=== PATIENT | male | born 1980 | race Caucasian/White ===

== ENCOUNTER 2022-04-29 21:44 | Outpatient (CLI) | payer SELFPAY | END 2022-04-29 21:45 | disposition home or self-care (01) | LOC: AMB 05-03 14:43 | PROVIDERS: Visit Provider Family Medicine | DX: M79.672 Pain in left foot (principal); M79.671 Pain in right foot | CPT/HCPCS: A0425; A0429 ==

== ENCOUNTER 2022-04-29 22:10 | Emergency (ER) | payer SELFPAY ==
[2022-04-29 23:51] VITALS: BP 128/77; PULSE 78; RESP 16; TEMP 36.4; O2SAT 100; BMI 29.0
--- NOTE | 2022-04-30 02:51 | ED.LOWEXIN ---
HPI - Extremity Injury (Lower) General Chief Complaint: Unspecified Complaint, Adult Stated Complaint: FOOT PAIN Time Seen by Provider: 04/30/22 01:21 History of Present Illness HPI Narrative: 41-year-old man presenting to the emergency department initial triage complaints of injuries sustained from spider bites to his feet. I awakened him from sleep clearly very tired having trouble staying awake during this interview. is originally from [place] and says in the area to attend online school. Primary care provider /prescriber [facility] from [place]. He notes history of TBI which he thinks is partly the reason that he has foot neuropathy. He normally takes 800 mg of gabapentin 4 times daily. He has been out of this for the last 2 days. He notes that he denies having had a specific injury to them during this interview including frostbite when queried. That is his primary complaint of pain. Asking where he is sleeping and he says he has been does not have any particular place to stay right now. 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 Medications also include clonazepam which he takes daily for severe anxiety and Adderall and Suboxone. he would like refills of all medications. I discussed how to get some of these would need to be establishing primary care. He is interested in assistance in establishing care provider. Then he asks if it is okay if he just rests here for a time. Footwear is Crocs. Related Data Home Medications Medication Instructions Recorded Confirmed Suboxone 04/29/22 Viagra 04/29/22 clonazepam 1 mg tablet 1 mg PO TID 04/29/22 04/29/22 dextroamphetamine-amphetamine 30 30 mg PO BID 04/29/22 04/29/22 mg tablet (Adderall) gabapentin 04/29/22 Previous Rx's Medication Instructions Recorded gabapentin 800 mg tablet 800 mg PO QID #56 tabs 04/30/22 Allergies Allergy/AdvReac Type Severity Reaction Status Date / Time No Known Drug Allergies Allergy Verified 04/29/22 23:56 Review of Systems Status of ROS: Reports: 6 or more systems reviewed and unremarkable except as noted in History and below Narrative: difficult due to fatigue PFSH PFSH Social History Smoking Status: Former smoker How often do you have a drink containing alcohol: never AUDIT-C Alcohol total score: 0 Non-prescribed substance use: denies use Exam Narrative: Exam Narrative: Here with a Dr. Hogue, his Crocs, a couple disheveled plastic bags of belongings. Extremely tired. Slight ptosis of his left eye Evidence of scarring on his head. Continues to drift off during interview. Alerts when prompted. Respectful. Cranial nerves 2-12 are intact. The skin is warm and dry. Skin over arms hands ankles seems unusually soft. Mild edema of the lower extremities/ankles and feet. Warm, well perfused. Moving all extremities without difficulty Feet in question do not appear to have any traumatic lesions. Mild callosities but generally quite soft. Cardiovascular is regular rate and rhythm Abdomen is soft and nontender. No masses appreciated. Lungs are clear Const: Vital Signs, click to edit/add: Vital Signs - 24 hr 04/29/22 23:51 04/30/22 08:51 Temperature 97.6 F 98 F Pulse Rate [Left P ulse Oximeter] 78 60 Respiratory Rate 16 18 Blood Pressure [Ri ght Upper Arm] 128/77 99/67 Pulse Oximetry 100 98 Oxygen Delivery Me thod Room Air Room Air Documenting provider has reviewed patient's vital signs: yes Course Course Hospital Course: He is requesting to rest. Would appreciate dosing of his gabapentin. Reevaluation(s) Reevaluation #1: Slept overnight. More alert on re-evaluation. Calm. No evidence of withdrawal. Vital Signs Vital signs: Initial Vital Signs Temperature 97.6 F 04/29/22 23:51 Temperature Source Temporal Artery Scan 04/29/22 23:51 Pulse Rate 78 04/29/22 23:51 Respiratory Rate 16 04/29/22 23:51 Blood Pressure 128/77 04/29/22 23:51 Blood Pressure Mean 94 04/29/22 23:51 Blood Pressure Position Sitting 04/29/22 23:51 Pulse Oximetry 100 04/29/22 23:51 Oxygen Delivery Method 04/29/22 23:51 Vital Signs Temperature 97.6 F 04/29/22 23:51 Pulse Rate 78 04/29/22 23:51 Respiratory Rate 16 04/29/22 23:51 Blood Pressure 128/77 04/29/22 23:51 Pulse Oximetry 100 04/29/22 23:51 Oxygen Delivery Method 04/29/22 23:51 Temperature 98 F 04/30/22 08:51 Pulse Rate 60 04/30/22 08:51 Respiratory Rate 18 04/30/22 08:51 Blood Pressure 99/67 04/30/22 08:51 Pulse Oximetry 98 04/30/22 08:51 Oxygen Delivery Method 04/30/22 08:51 MDM - Extremity Injury (Lower) MDM Narrative Medical decision making narrative: I do not see need for further workup at this time. This may well change since rests and divulges more information over time in the ER. During my interview with Mr. Saldana, there was no paranoia or delusional thought. Can certainly at least refill gabapentin. One dose is given here in the emergency department. I suspect the most difficult is going to be social matters including placement. I asked him a number of times given what he had initially told nursing as to whether not he has family here in town, he denies that. I would suspect more significant mental health background than volunteered. Medical Records Medical records narrative: none available to me Lab Data Attestation: I reviewed the patient's lab results. Labs: Lab Results 04/30/22 Range/Units 08:24 Urine Opiates Screen Negative (Negative) Ur Oxycodone Screen Negative (Negative) Urine Methadone Screen Negative (Negative) Ur Propoxyphene Screen Negative (Negative) Ur Barbiturates Screen Negative (Negative) U Tricyclic Antidepress Negative (Negative) Ur Phencyclidine Scrn Negative (Negative) Ur Amphetamines Screen POSITIVE A* (Negative) U Methamphetamines Scrn Negative (Negative) U Benzodiazepines Scrn POSITIVE A* (Negative) Urine Cocaine Screen Negative (Negative) U Marijuana (THC) Screen POSITIVE A* (Negative) Ur Drug Screen Comment See Note Discharge Plan Discharge Clinical Impression: Social discord, Neuropathy Patient Disposition: Home, Self-Care Condition: Improved Additional Instructions: See information on [facility]. You can establish cares here. Prescriptions: New gabapentin 800 mg tablet 800 mg PO QID Qty: 56 0RF No Action clonazepam 1 mg tablet 1 mg PO TID Suboxone dextroamphetamine-amphetamine [Adderall] 30 mg tablet 30 mg PO BID Rx Instructions: administer doses at least 4-6 hours apart Viagra gabapentin Follow Up/Referrals: Provider,Not a Local [Primary Care Provider] - Stand Alone Forms: [employer] Info Instructions
[2022-04-30 08:51] VITALS: BP 99/67; PULSE 60; RESP 18; TEMP 36.6; O2SAT 98
[2022-04-30] MEDS: GABAPENTIN 600 MG TABLET PO (09:00)
[2022-04-30] MEDS: GABAPENTIN 100 MG CAPSULE 200 MG PO (09:10)
[2022-04-30 09:58] LABS: Barbiturate Screen Urine Negative (Negative); Cocaine Screen Urine Negative (Negative); Methadone Screen Urine Negative (Negative); Methamphetamines Screen Urine Negative (Negative); Opiate Screen Urine Negative (Negative); Oxycodone Screen Urine Negative (Negative); Phencyclidine Screen Urine Negative (Negative); Tricyclic Antidepressant Urine Negative (Negative)
[2022-04-30 10:01] LABS: Amphetamine Screen Urine POSITIVE (Negative); Benzodiazepines Screen Urine POSITIVE (Negative); Cannabinoid Screen Urine POSITIVE (Negative)
--- NOTE | 2022-04-30 10:01 | PC.SOCIAL ---
Met with pt to discuss resources. Provided pt with written information on the [facility] in [place] and [facility]. Informed pt that there are no homeless shelters in [facility] and only in the [facility]. Discussed with pt information on relatives in the area. Pt. stated that he can go to his mother's home. Pt provided his mother's address which is [address] in [place]. Informed pt that the Social Work Department can assist with a taxi to his mother's home or to the [facility]. Informed pt that he is not able to make multiple stops and can only go to one location. Pt stated he would like to take the taxi to his mother's home. Offered to call pt's mother to see if she was home and pt declined stating that there is usually always someone at the home. Pt disclosed that he is trying to break free from family and be more independent. Informed Pt that [facility] in [place] can be a great resource for him. Pt will go to the [facility] later today. Provided information to nursing staff in Emergency Department and informed that we could assist with a taxi to mother's home.
--- NOTE | 2022-04-30 10:26 | ED.NURSE ---
wanted to wait outside for taxi. has all information and will proceed to momkady' house at [place]. [facility] was given. will get gabapentin at [facility] with voucher.
== END 2022-04-30 10:30 | disposition home or self-care (01) ==
PROVIDERS: Emergency Provider Family Medicine
DX: G62.9 Polyneuropathy, unspecified (principal); Z73.5 Social role conflict, not elsewhere classified
CPT/HCPCS: 80306; 99283; 99284; A9270

== ENCOUNTER 2023-05-29 09:40 | Emergency (ER) | payer MEDICAID, SELFPAY ==
[2023-05-29 09:51] VITALS: BP 156/82; PULSE 86; RESP 18; TEMP 36.6; O2SAT 98
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
== END 2023-05-29 11:30 | disposition home or self-care (01) ==
LOC: ED 11:14
PROVIDERS: Emergency Provider Family Medicine
DX: Z76.0 Encounter for issue of repeat prescription (principal)
CPT/HCPCS: 99282; 99283

== ENCOUNTER 2024-07-08 09:09 | Emergency (ER) | payer MEDICAID, SELFPAY ==
[2024-07-08 09:14] VITALS: BP 165/110; PULSE 98; RESP 16; TEMP 36.7; O2SAT 95; BMI 35.5
--- NOTE | 2024-07-08 09:36 | ED.GENADULT ---
HPI - General Adult General Chief complaint: Unspecified Complaint, Adult Stated complaint: Anxiety, out of meds Time Seen by Provider: 07/08/24 09:20 History of Present Illness HPI narrative: 44-year-old male comes in stating that he is run out of a couple of his medications and is seeking a refill. He is present here with his mother and both of them recently moved from [place] into this area. He has not yet established care with a primary physician. His mother explains that they thought they had an appointment for June 28, about a week ago and went to the appointment and apparently there was no such appointment made. He states that he last took his clonazepam and gabapentin yesterday. He is feeling anxious. He is also on Suboxone and states that he has been on Adderall also. He reports a history of traumatic brain injury. He does not appear to be in withdrawal. He does report a seizure history and states that he has been on Dilantin in the past. Related Data Home Medications ?Medication ?Instructions ?Recorded ?Confirmed clonazepam 1 mg tablet 1 mg PO TID 04/29/22 07/08/24 dextroamphetamine-amphetamine 30 30 mg PO BID 04/29/22 07/08/24 mg tablet (Adderall) buprenorphine 8 mg-naloxone 2 mg 1 film sublingual 3XD 07/08/24 07/08/24 sublingual film Previous Rx's ?Medication ?Instructions ?Recorded gabapentin 800 mg tablet 800 mg PO QID #56 tabs 04/30/22 gabapentin 800 mg tablet 800 mg PO QID #30 tabs 07/08/24 Allergies Allergy/AdvReac Type Severity Reaction Status Date / Time spider venom Allergy Unknown Verified 07/08/24 09:19 Review of Systems Status of ROS: Reports: 10 or more systems reviewed and unremarkable except as noted in History and below Narrative: Constitutional: No fevers, no weight gain or loss. Eyes: No discharge. No vision changes. HENT: No congestion, no sore throat, no ear pain. Cardiovascular: No chest pain, no palpitations. Respiratory: No shortness of breath, no wheezes, no cough. Gastrointestinal: No abdominal pain, no vomiting, no diarrhea. Genitourinary: No dysuria, no hematuria. Musculoskeletal: Normal range of motion. Skin: No rashes, no pruritis. Neurological: No dizziness, weakness, sensory change, speech change. Endo/Heme/Allergies: No bruising or bleeding. No polydipsia. Pysch: no suicidality, no insomnia. He reports anxiety symptoms. All other systems reviewed and are negative. [facility] Social History Smoking Status: Former smoker How often do you have a drink containing alcohol: never AUDIT-C Alcohol total score: 0 Non-prescribed substance use: former substance user Exam Narrative: Exam Narrative: Constitutional: Well-developed, well-nourished, no acute distress. HEENT: Normocephalic, atraumatic. Neck: Normal range of motion. Nontender. Supple. Heart: Intact distal pulses. Lungs: No chest discomfort. No wheezes, rhonchi, or rales. Abdomen: Nontender. Back: Normal range of motion. Extremities: Normal range of motion. No injury. Skin: Intact. No rash. Warm. No erythema or pallor. Neurologic: No altered sensation. No weakness. Alert and oriented. Psychiatric: No suicidality. No anxiety or depression. No insomnia. Nursing notes and vitals signs are reviewed. Const: Vital Signs, click to edit/add: Vital Signs - 24 hr 07/08/24 09:14 Temperature 98.1 F Pulse Rate [Pulse Oximeter] 98 Respiratory Rate 16 Blood Pressure [Ri ght Upper Arm] 165/110 H Pulse Oximetry 95 Oxygen Delivery Me thod Room Air Course Vital Signs Vital signs: Initial Vital Signs Temperature 98.1 F 07/08/24 09:14 Temperature Source Temporal Artery Scan 07/08/24 09:14 Pulse Rate 98 07/08/24 09:14 Respiratory Rate 16 07/08/24 09:14 Blood Pressure 165/110 H 07/08/24 09:14 Blood Pressure Mean 128 H 07/08/24 09:14 Blood Pressure Position Sitting 07/08/24 09:14 Pulse Oximetry 95 07/08/24 09:14 Oxygen Delivery Method Room Air 07/08/24 09:14 Vital Signs Temperature 98.1 F 07/08/24 09:14 Pulse Rate 98 07/08/24 09:14 Respiratory Rate 16 07/08/24 09:14 Blood Pressure 165/110 H 07/08/24 09:14 Pulse Oximetry 95 07/08/24 09:14 Oxygen Delivery Method Room Air 07/08/24 09:14 Temperature 98.1 F 07/08/24 09:14 Pulse Rate 98 07/08/24 09:14 Respiratory Rate 16 07/08/24 09:14 Blood Pressure 165/110 H 07/08/24 09:14 Pulse Oximetry 95 07/08/24 09:14 Oxygen Delivery Method Room Air 07/08/24 09:14 Medical Decision Making MDM Narrative Medical decision making narrative: This patient is on a number of scheduled drugs chronically. He seems believable in that he has not yet established care here after recently moving from [place]. I stressed the importance of establishing this care and stated that we will not manage these medicines from the emergency department. He is at risk for withdrawal with both clonazepam and gabapentin. I did provide prescriptions for each of these to help him for about a week. I included phone number for establishing a doctor appointment in the discharge information. Discharge Plan Discharge Clinical Impression: Anxiety Additional Instructions: follow-up with a primary physician for ongoing management of medications. Call [phone] for appointment. Prescriptions: New gabapentin 800 mg tablet 800 mg PO QID Qty: 30 2RF No Action buprenorphine-naloxone 8-2 mg film 1 film sublingual 3XD clonazepam 1 mg tablet 1 mg PO TID dextroamphetamine-amphetamine [Adderall] 30 mg tablet 30 mg PO BID Rx Instructions: administer doses at least 4-6 hours apart gabapentin 800 mg tablet 800 mg PO QID Qty: 56 0RF Follow Up/Referrals: Provider,Not a Local [Primary Care Provider] - Stand Alone Forms: [employer] Info Instructions
--- OUTSIDE RECORDS SUMMARY | 2024-07-08 10:07 | XMS_ITS | Encounter Summary ---
Author Organization [facility] Address [address] [place] [address] Care Team Providers Care Cleaning Specialist Name Role Phone Bhavana La MD Primary Care Provider [phone] Encounter Details Date Type Department Care Team (Latest Contact Info) Description 03/10/2023 Transcribe Orders [facility] [place] [address] [place] [address] Bhavana La MD [address] [place] [address] Pain in right hip (Primary Dx) Social History Tobacco Use Types Packs/Day Years Used Date Smoking Tobacco: Some Days Cigarettes 0.3 4 Smokeless Tobacco: Never Comments:Education given Alcohol Use Standard Drinks/Week Comments Yes 0 (1 standard drink = 0.6 oz pure alcohol) Pt states he doesnt use anymore PHQ-2 Answer Date Recorded PHQ-2 Score 0 11/18/2018 Sex and Gender Information Value Date Recorded Sex Assigned at Not on file Gender Identity Not on file Sexual Orientation Not on file documented as of this encounter Plan of Treatment Upcoming Encounters Date Type Department Care Team (Late st Contact Info) Description 12/12/2024 11:20 AM MDT Office Visit [facility] [address] [place] [address] Devin Rollins MD [address] [place] [address] documented as of this encounter Visit Diagnoses Diagnosis Pain in right hip- Primary documented in this encounter Care Teams Cleaning Specialist Relationship Specialty Start Date End Date Bhavana La MD [address] [place] [id number] PCP - General Family Medicine 06/21/23 documented as of this encounter
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
--- OUTSIDE RECORDS SUMMARY | 2024-07-08 10:07 | XMS_ITS | Encounter Summary ---
Author Organization [employer] Address [address] [place] [address] Care Team Providers Care Lean Leader Name Role Phone Bhavana La MD Primary Care Provider +1 [phone] Encounter Details Date Type Department Care Team (Late st Contact Info) Description 04/02/2020 [facility] Patient Access [address] [place] [address] Pcp, Unknown Social History Tobacco Use Types Packs/Day Years Used Date Smoking Tobacco: Some Days Cigarettes 0.3 4 Smokeless Tobacco: Never Comments:Education given Alcohol Use Standard Drinks/Week Comments No 0 (1 standard drink = 0.6 oz pur e alcohol) PHQ-2 Answer Date Recorded PHQ-2 Score 0 11/18/2018 Sex and Gender Information Value Date Recorded Sex Assigned at Not on file Gender Identity Not on file Sexual Orientation Not on file COVID-19 Exposure Response Date Recorded In the last month, have you been in contact with someone who was confirmed or suspected to have Coronavirus / COVID-19? No / Unsure 03/22/2020 3:22 PM MDT documented as of this encounter Plan of Treatment Upcoming Encounters Date Type Department Care Team (Late Contact Info) Description 12/12/2024 11:20 AM MDT Office Visit [facility] [address] [place] [address] Devin Rollins MD [address] [facility] [address] [place] [address] documented as of this encounter Visit Diagnoses Not on filedocumented in this encounter Additional Health Concerns Infection Onset Date Last Indicated Resolved Time COVID-19 Pending 05/30/2021 05/30/2021 05/31/2021 12:51 AM MDT COVID-19 Pending 08/08/2021 08/08/2021 08/08/2021 12:19 PM MST COVID-19 Pending 08/17/2022 08/17/2022 09/07/2022 7:42 PM MST documented as of this encounter Care Teams Lean Leader Relationship Specialty Start Date End Date Bhavana La MD [address] [place] [address] [place] [address] PCP - General Family Medicine 06/21/23 documented as of this encounter
--- OUTSIDE RECORDS SUMMARY | 2024-07-08 10:07 | XMS_ITS | Encounter Summary ---
Author Organization [employer] Address [address] [place] [address] Care Team Providers Care Tumbling Barrel Painter Name Role Phone Bhavana La MD Primary Care Provider + -[phone] Reason for Referral * EEG (Routine) - Closed Specialty Diagnoses / Procedures Referred By Contdavonte t Referred To Contact Neurology Diagnoses Other seizures ([facility]) Procedures EEG Routine; Standard duration Bhavana La MD [address] [place] [address] [place] [address] [facility] Eeg Neuro [address] [facility] [place] [address] Referral ID Status Reason Start Date Expiration Date Visits Re quested Visits Authorized [id number] Closed 04/13/2023 04/12/2024 1 1 Encounter Details Date Type Department Care Team (Latest Contact Info) Description 04/13/2023 Transcribe Orders [facility] [address] [place] [address] Bhavana La MD [address] [place] [address] [place] [address] Other seizures (CMS/HCC) (Primary Dx); Right hip pain Social History Tobacco Use Types Packs/Day Years [...] Description 12/12/2024 11:20 AM MDT Office Visit [facility] [address] [place] [address] Devin Rollins MD [address] [place] [address] Scheduled Orders Name Type Priority Associated Diagnoses Orde r Schedule EEG Routine; Standard duration Neurology Routine Other seizures (CMS/HCC) Expected: 04/13/2023, Expires: 04/13/2024 documented as of this encounter Visit Diagnoses Diagnosis Other seizures (CMS/HCC)- Primary Right hip pain Pain in joint, pelvic region and thigh documented in this encounter Care Teams Tumbling Barrel Painter Relationship Specialty Start Date End Date Bhavana La MD [address] [place] [address] PCP - General Family Medicine 06/21/23 documented as of this encounter
--- OUTSIDE RECORDS SUMMARY | 2024-07-08 10:07 | XMS_ITS | Encounter Summary ---
Author Organization [employer] Address [address] [place] [address] Care Team Providers Care Turkey Farmer Name Role Phone Bhavana La MD Primary Care Provider +1 [phone] Encounter Details Date Type Department Care Team (Latest Contact Info) Description 04/19/[address] [facility] [address] [place] [address] Bhavana La MD [address] [place] [address] [place] [address] Other seizures (CMS/HCC) (Primary Dx) Social History Tobacco Use Types [...] Description 12/12/2024 11:20 AM MDT Office Visit [facility] [address] [facility] [address] [place] [address] Devin Rollins MD [address] [place] [address] documented as of this encounter Visit Diagnoses Diagnosis Other seizures (CMS/HCC)- Primary documented in this encounter Care Teams Turkey Farmer Relationship Specialty Start Date End Date Bhavana La MD [address] [place] [address] [place] [address] PCP - General Family Medicine 06/21/23 documented as of this encounter
--- OUTSIDE RECORDS SUMMARY | 2024-07-08 10:07 | XMS_ITS | Encounter Summary ---
Author Organization [employer] Address [address] [place] [address] Care Team Providers Care Teaching Pastor Name Role Phone Bhavana La MD Primary Care Provider +1 [phone] Encounter Details Date Type Department Care Team (Latest Contact Info) Description 01/19/2020 [facility] Patient Access [address] [place], [place] [id number] Bhavana La MD [address] [place] [address] Pain in right hip (Primary Dx) Social [...] Description 12/12/2024 11:20 AM MDT Office Visit [facility] [address] [place] [address] Devin Rollins MD [facility] [address] [place] [address] documented as of this encounter Visit Diagnoses Diagnosis Pain in right hip- Primary documented in this encounter Additional Health Concerns Infection Onset Date Last Indicated Resolved Time COVID-19 Pending 05/30/2021 05/30/2021 05/31/2021 12:51 AM MDT COVID-19 Pending 08/08/2021 08/08/2021 08/08/2021 12:19 PM MST COVID-19 Pending 08/17/2022 08/17/2022 09/07/2022 7:42 PM MST documented as of this encounter Care Teams Teaching Pastor Relationship Specialty Start Date End Date Bhavana La MD [address] [facility] [address] [place] [address] PCP - General Family Medicine 06/21/23 documented as of this encounter
--- OUTSIDE RECORDS SUMMARY | 2024-07-08 10:07 | XMS_ITS | Encounter Summary ---
Author Organization [employer] Address [address] [place] [address] Care Team Providers Care Web Assistant Name Role Phone Bhavana La MD Primary Care Provider +1 [phone] Reason for Referral * Physical Therapy (Routine) - Closed Specialty Diagnoses / Procedures Referred By Contact Referred To Contact Physical Therapy / Rehabilitation Diagnoses Back pain Juli Wells NP [address] [email or web address] [address] [facility] [address] [email or web address] [address] Referral ID Status Reason Start Date Expiration Date V isits Requested Visits Authorized [id number] Closed Evaluation and Treatment 01/31/2019 03/28/2019 8 8 Encounter Details Date Type Department Care Team (Latest Contact Info) Description 02/27/2019 Transcribe Orders [facility] [place] [address] [place] [address] Juli Wells NP [address] [email or web address] [address] Back pain (Primary Dx) Social History Tobacco Use Types Packs/Day Years Used Date Smoking Tobacco: Some Days Cigarettes 0.3 4 Smokeless Tobacco: Never Alcohol Use Standard Drinks/Week Comments No 0 [...] Description 12/12/2024 11:20 AM MDT Office Visit [facility] [address] [place] [address] Devin Rollins MD [address] [place] [address] Scheduled Referrals Name Type Priority Associated Diagnoses Order Schedule Ambulatory Referral to Physical Therapy Outpatient Referral Routine Back pain Expected: 02/28/2019, Expires: 03/13/2020 documented as of this encounter Visit Diagnoses Diagnosis Back pain- Primary Unspecified backache documented in this encounter Additional Health Concerns Infection Onset Date Last Indicated Resolved Time COVID-19 Pending 05/30/2021 05/30/2021 05/31/2021 12:51 AM MDT COVID-19 Pending 08/08/2021 08/08/2021 08/08/2021 12:19 PM MST COVID-19 Pending 08/17/2022 08/17/2022 09/07/2022 7:42 PM MST documented as of this encounter Care Teams Web Assistant Relationship Specialty Start Date End Date Bhavana La MD [address] [place] [address] PCP - General Family Medicine 06/21/23 documented as of this encounter
--- OUTSIDE RECORDS SUMMARY | 2024-07-08 10:07 | XMS_ITS | Encounter Summary ---
Author Organization [employer] Address [address] [place] [address] Care Team Providers Care Vision Teacher Name Role Phone Bhavana La MD Primary Care Provider +1 -[phone] Reason for Referral * Physical Therapy (Routine) - Closed Specialty Diagnoses / Procedures Referred By Contact Referred To Contact Physical Therapy / Rehabilitation Diagnoses Hip pain, chronic, right Right leg pain Juli Wells NP [address] [place] [address] [facility] [address] [address] Referral ID Status Reason Start Date Expiration Date V isits Requested Visits Authorized [id number] Closed Evaluation and Treatment 06/06/2020 06/06/2021 6 6 Encounter Details Date Type Department Care Team (Latest Contact Info) Description 06/06/2020 Transcribe Orders [facility] [place] [address] [address] Juli Wells NP [address] [place] [address] Hip pain, chronic, right (Primary Dx); Right leg pain Social History Tobacco Use Types Packs/Day [...] Description 12/12/2024 11:20 AM MDT Office Visit [facility] [address] [place] [phone] Devin Rollins MD [address] [place] [address] Scheduled Referrals Name Type Priority Associated Diagnoses Order Schedule Ambulatory Referral to Physical Therapy Outpatient Referral Routine Hip pain, chronic, right Right leg pain Ordered: 06/06/2020 documented as of this encounter Visit Diagnoses Diagnosis Hip pain, chronic, right- Primary Right leg pain Pain in soft tissues of limb documented in this encounter Additional Health Concerns Infection Onset Date Last Indicated Resolved Time COVID-19 Pending 05/30/2021 05/30/2021 05/31/2021 12:51 AM MDT COVID-19 Pending 08/08/2021 08/08/2021 08/08/2021 12:19 PM MST COVID-19 Pending 08/17/2022 08/17/2022 09/07/2022 7:42 PM MST documented as of this encounter Care Teams Vision Teacher Relationship Specialty Start Date End Date Bhavana La MD [address] [place] [address] PCP - General Family Medicine 06/21/23 documented as of this encounter
--- OUTSIDE RECORDS SUMMARY | 2024-07-08 12:35 | XMS_ITS | Encounter Summary ---
Author Organization [employer] Address [address] [place] [address] Care Team Providers Care Plater Barrel Name Role Phone Bhavana La MD Primary Care Provider +1 -[phone] Encounter Details Date Type Department Care Team (Latest Contact Info) Description 01/19/2020 [facility] Patient Access [address] [place], [place] [phone] Bhavana La MD [address] [place] [address] Pain in right hip (Primary Dx) Social [...] Description 12/12/2024 11:20 AM MDT Office Visit [facility] [address] [place] [address] Devin Rollins MD [facility] [address] [place] [address] documented as of this encounter Visit Diagnoses Diagnosis Pain in right hip- Primary documented in this encounter Additional Health Concerns Infection Onset Date Last Indicated Resolved Time COVID-19 Pending 05/30/2021 05/30/2021 05/31/2021 12:51 AM MDT COVID-19 Pending 08/08/2021 08/08/2021 08/08/2021 12:19 PM MST COVID-19 Pending 08/17/2022 08/17/2022 09/07/2022 7:42 PM MST documented as of this encounter Care Teams Plater Barrel Relationship Specialty Start Date End Date Bhavana La MD [address] [facility] [address] [place] [address] PCP - General Family Medicine 06/21/23 documented as of this encounter
--- OUTSIDE RECORDS SUMMARY | 2024-07-08 12:35 | XMS_ITS | Encounter Summary ---
Author Organization [employer] Address [address] [place] [address] Care Team Providers Care Outreach Counselor Name Role Phone Bhavana La MD Primary Care Provider +1 -[phone] Encounter Details Date Type Department Care Team (Latest Contact Info) Description 03/10/2023 [facility] [place] [address] [place] [...] 11:20 AM MDT Office Visit [facility] [address] [place] [address] Devin Rollins MD [address] [place] [address] documented as of this encounter Visit Diagnoses Diagnosis Pain in right hip- Primary documented in this encounter Care Teams Outreach Counselor Relationship Specialty Start Date End Date Bhavana La MD [address] [place] [address] PCP - General Family Medicine 06/21/23 documented as of this encounter
--- OUTSIDE RECORDS SUMMARY | 2024-07-08 12:35 | XMS_ITS | Referral Summary ---
Author Organization [employer] Address [address] [place] [address] Care Team Providers Care Historic Preservationist Name Role Phone Bhavana La MD Primary Care Provider +1 -[phone] Allergies Active Allergy Reactions Criticality Noted Date [...] 11:20 AM MDT Office Visit [facility] [address] [facility] [address] [place] [address] Devin Rollins MD [address] [facility] [address] [place] [address] Advance Directives * Full Code (Latest Code Status on File) Date Activated Date Inactivated Comments 06/07/2022 6:48 AM 06/07/2022 1:29 PM Care Teams Historic Preservationist Relationship Specialty Start Date End Date Bhavana La MD [address] [facility] [address] [place] [address] PCP - General Family Medicine 06/21/23
--- OUTSIDE RECORDS SUMMARY | 2024-07-08 12:35 | XMS_ITS | Encounter Summary ---
Author Organization [employer] Address [address] [place] [address] Care Team Providers Care Performance Improvement Consultant Name Role Phone Bhavana La MD Primary Care Provider +1 -[phone] Encounter Details Date Type Department Care Team (Latest Contact Info) Description 04/19/2023 Transcribe Orders [facility] [address] [place] [address] Bhavana La MD [address] [place] [address] Other seizures (CMS/HCC) (Primary Dx) Social History [...] Description 12/12/2024 11:20 AM MDT Office Visit [facility] [address] [facility] [address] [place] [address] Devin Rollins MD [address] [place] [address] documented as of this encounter Visit Diagnoses Diagnosis Other seizures (CMS/HCC)- Primary documented in this encounter Care Teams Performance Improvement Consultant Relationship Specialty Start Date End Date Bhavana La MD [address] [place] [address] [place] [address] PCP - General Family Medicine 06/21/23 documented as of this encounter
--- OUTSIDE RECORDS SUMMARY | 2024-07-08 12:35 | XMS_ITS | Encounter Summary ---
Author Organization [employer] Address [address] [place] [address] Care Team Providers Care Amusement Or Recreation Card Checker Name Role Phone Bhavana La MD Primary Care Provider +1 -[phone] Reason for Referral * Physical Therapy (Routine) - Closed Specialty Diagnoses / Procedures Referred By Contact Referred To Contact Physical Therapy / Rehabilitation Diagnoses Back pain Juli Wells NP [address] [place] [address] [facility] [address] [place] [address] Referral ID Status Reason Start Date Expiration Date V isits Requested Visits Authorized [id number] Closed Evaluation and Treatment 01/31/2019 03/28/2019 8 8 Encounter Details Date Type Department Care Team (Latest Contact Info) Description 02/27/2019 [facility] [place] [address] [place] [address] Juli Wells NP [address] [place] [address] Back pain (Primary Dx) Social History [...] Description 12/12/2024 11:20 AM MDT [facility] [address] [place] [address] Devin Rollins MD [address] [place] [address] Scheduled [...] documented as of this encounter Care Teams Amusement Or Recreation Card Checker Relationship Specialty Start Date End Date Bhavana La MD [address] [place] [address] PCP - General Family Medicine 06/21/23 documented as of this encounter
--- OUTSIDE RECORDS SUMMARY | 2024-07-08 12:35 | XMS_ITS | Clinical Summary ---
Author Organization [employer] Address [address] [place] [address] Care Team Providers Care Television Announcer Name Role Phone Bhavana La MD Primary Care Provider +1 -[phone] Allergies Active Allergy Reactions Criticality Noted Date [...] 11:20 AM MDT [facility] [address] [facility] [address] [place] [address] Devin Rollins MD 1010 [facility] [address] [place] [address] Health Maintenance Due Date Last Done [...] 6:48 AM 06/07/2022 1:29 PM Care Teams Television Announcer Relationship Specialty Start Date End Date Bhavana La MD [address] [place] [address] [place] [address] PCP - General Family Medicine 06/21/23
--- OUTSIDE RECORDS SUMMARY | 2024-07-08 12:35 | XMS_ITS | Encounter Summary ---
Author Organization [employer] Address [address] [place] [place] [address] Care Team Providers Care Supervisor Chassis Assembly Name Role Phone Bhavana La MD Primary Care Provider + -[phone] Reason for Referral * EEG (Routine) - Closed Specialty Diagnoses / Procedures Referred By Contdavonte t Referred To Contact Neurology Diagnoses Other seizures ([facility]) Procedures EEG Routine; Standard duration Bhavana La MD [address] [employer] [place] [address] [facility] Eeg Neuro [address] [place] [address] Referral ID Status Reason Start Date Expiration Date Visits Re quested Visits Authorized [id number] Closed 04/13/2023 04/12/2024 1 1 Encounter Details Date Type Department Care Team (Latest Contact Info) Description 04/13/[address] [facility] [address] [place] [address] Bhavana La MD [address] [employer] [address] Other seizures (CMS/HCC) (Primary Dx); Right [...] Description 12/12/2024 11:20 AM MDT Office Visit [facility] Neurology [facility] [address] [place] [address] Devin Rollins MD [address] [place] [address] Scheduled Orders Name Type Priority Associated Diagnoses Orde r Schedule EEG Routine; Standard duration Neurology Routine Other seizures (CMS/HCC) Expected: 04/13/2023, Expires: 04/13/2024 documented as of this encounter Visit Diagnoses Diagnosis Other seizures (CMS/HCC)- Primary Right hip pain Pain in joint, pelvic region and thigh documented in this encounter Care Teams Supervisor Chassis Assembly Relationship Specialty Start Date End Date Bhavana La MD [address] [place] [address] PCP - General Family Medicine 06/21/23 documented as of this encounter
--- OUTSIDE RECORDS SUMMARY | 2024-07-08 12:35 | XMS_ITS | Encounter Summary ---
Author Organization [employer] Address [address] [place] [address] Care Team Providers Care Lead Massage Therapist Name Role Phone Bhavana La MD Primary Care Provider +1 [phone] Reason for Referral * Physical Therapy (Routine) - Closed Specialty Diagnoses / Procedures Referred By Contact Referred To Contact Physical Therapy / Rehabilitation Diagnoses Hip pain, chronic, right Right leg pain Juli Wells NP [address] [place] [address] [facility] [address] [address] Referral ID Status Reason Start Date Expiration Date V isits Requested Visits Authorized [id number] Closed Evaluation and Treatment 06/06/2020 06/06/2021 6 6 Encounter Details Date Type Department Care Team (Latest Contact Info) Description 06/06/2020 Transcribe Orders [facility] [place] [address] [place] [address] Juli Wells NP [address] [place] [address] Hip pain, chronic, right (Primary Dx); Right [...] 11:20 AM MDT Office Visit [facility] [address] [place] [phone] Devin Rollins MD [address] [place] [address] Scheduled Referrals Name Type Priority [...] documented as of this encounter Care Teams Lead Massage Therapist Relationship Specialty Start Date End Date Bhavana La MD [address] [place] [address] PCP - General Family Medicine 06/21/23 documented as of this encounter
--- OUTSIDE RECORDS SUMMARY | 2024-07-08 12:35 | XMS_ITS | Encounter Summary ---
Author Organization [employer] [facility] Address [address] [place] [address] Care Team Providers Care Professor Of Theater Name Role Phone Bhavana La MD Primary Care Provider +1 [phone] Encounter Details Date Type Department Care Team (Late st Contact Info) Description 04/02/2020 [facility] Patient Access [address] [place] [address] Pcp, Unknown Social [...] Description 12/12/2024 11:20 AM MDT Office Visit [facility] [address] [place] [address] Devin Rollins MD [address] [facility] [address] [place] [address] documented as of this encounter Visit Diagnoses Not on filedocumented in this encounter Additional Health Concerns Infection Onset Date Last Indicated Resolved Time COVID-19 Pending 05/30/2021 05/30/2021 05/31/2021 12:51 AM MDT COVID-19 Pending 08/08/2021 08/08/2021 08/08/2021 12:19 PM MST COVID-19 Pending 08/17/2022 08/17/2022 09/07/2022 7:42 PM MST documented as of this encounter Care Teams Professor Of Theater Relationship Specialty Start Date End Date Bhavana La MD [address] [place] [address] PCP - General Family Medicine 06/21/23 documented as of this encounter
== END 2024-07-08 10:06 | disposition home or self-care (01) ==
LOC: ED 10:04
PROVIDERS: Emergency Provider Emergency Medicine Emergency Medical Services
DX: F41.9 Anxiety disorder, unspecified (principal)
CPT/HCPCS: 99283; 99285

== ENCOUNTER 2024-07-17 16:04 | Emergency (ER) | payer MEDICARE, SELFPAY ==
[2024-07-17 16:15] VITALS: BP 138/96; PULSE 92; RESP 18; TEMP 36.4; O2SAT 98; BMI 34.2
--- NOTE | 2024-07-17 18:21 | ED_ITS ---
HPI - General Adult General Chief complaint: Unspecified Complaint, Adult Stated complaint: Anxiety--needs med refill Time Seen by Provider: 07/17/24 18:15 History of Present Illness HPI narrative: This 44-year-old male comes in with his mother because he has run out of clonazepam. He has increased anxiety as results. He typically takes 1 mg clonazepam tablets 3 times a day. He recently moved into this area from [place] and did have an appointment with a primary physician that turned out to be not an appointment that the clinic was expecting. He came in to see me here in this emergency department 9 days ago under these circumstances and I did refill his clonazepam and gabapentin because of the risk for withdrawal symptoms. He has now arrange an appointment with Dr. Childers 8 days from now. He comes in now because he has run out of his clonazepam and is feeling anxious. Related Data Home Medications ?Medication ?Instructions ?Recorded ?Confirmed clonazepam 1 mg tablet 1 mg PO TID 04/29/22 07/08/24 dextroamphetamine-amphetamine 30 30 mg PO BID 04/29/22 07/08/24 mg tablet (Adderall) buprenorphine 8 mg-naloxone 2 mg 1 film sublingual 3XD 07/08/24 07/08/24 sublingual film Previous Rx's ?Medication ?Instructions ?Recorded gabapentin 800 mg tablet 800 mg PO QID #56 tabs 04/30/22 gabapentin 800 mg tablet 800 mg PO QID #30 tabs 07/08/24 clonazepam 1 mg tablet 1 mg PO BID #20 tabs 07/17/24 Allergies Allergy/AdvReac Type Severity Reaction Status Date / Time spider venom Allergy Unknown Verified 07/08/24 09:19 Review of Systems Status of ROS: Reports: 10 or more systems reviewed and unremarkable except as noted in History and below Narrative: Constitutional: No fevers, no weight gain or loss. Eyes: No discharge. No vision changes. HENT: No congestion, no sore throat, no ear pain. Cardiovascular: No chest pain, no palpitations. Respiratory: No shortness of breath, no wheezes, no cough. Gastrointestinal: No abdominal pain, no vomiting, no diarrhea. Genitourinary: No dysuria, no hematuria. Musculoskeletal: Normal range of motion. Skin: No rashes, no pruritis. Neurological: No dizziness, weakness, sensory change, speech change. Endo/Heme/Allergies: No bruising or bleeding. No polydipsia. Pysch: no suicidality, no insomnia. Anxiety symptoms as described above. All other systems reviewed and are negative. [facility] Social History Smoking Status: Former smoker How often do you have a drink containing alcohol: never AUDIT-C Alcohol total score: 0 Non-prescribed substance use: former substance user Exam Narrative: Exam Narrative: Constitutional: Well-developed, well-nourished, no acute distress. HEENT: Normocephalic, atraumatic. Neck: Normal range of motion. Nontender. Supple. Heart: Regular. No murmurs. Normal rate. Intact distal pulses. Lungs: Clear to auscultation. No chest discomfort. No wheezes, rhonchi, or rales. Abdomen: Normal bowel sounds. Nontender. No rebound tenderness. Genitalia: Deferred. Back: No midline tenderness. Normal range of motion. Extremities: Normal range of motion. No injury. Skin: Intact. No rash. Warm. No erythema or pallor. Neurologic: No altered sensation. No weakness. Alert and oriented. Psychiatric: No suicidality. No insomnia. Nursing notes and vitals signs are reviewed. Const: Vital Signs, click to edit/add: Vital Signs - 24 hr 07/17/24 16:15 Temperature 97.6 F Pulse Rate [Pulse Oximeter] 92 Respiratory Rate 18 Blood Pressure [Ri ght Upper Arm] 138/96 H Pulse Oximetry 98 Oxygen Delivery Me thod Room Air Course Vital Signs Vital signs: Initial Vital Signs Temperature 97.6 F 07/17/24 16:15 Temperature Source Temporal Artery Scan 07/17/24 16:15 Pulse Rate 92 07/17/24 16:15 Pulse Rhythm Regular 07/17/24 16:15 Respiratory Rate 18 07/17/24 16:15 Blood Pressure 138/96 H 07/17/24 16:15 Blood Pressure Mean 110 H 07/17/24 16:15 Blood Pressure Position Sitting 07/17/24 16:15 Pulse Oximetry 98 07/17/24 16:15 Oxygen Delivery Method Room Air 07/17/24 16:15 Vital Signs Temperature 97.6 F 07/17/24 16:15 Pulse Rate 92 07/17/24 16:15 Respiratory Rate 18 07/17/24 16:15 Blood Pressure 138/96 H 07/17/24 16:15 Pulse Oximetry 98 07/17/24 16:15 Oxygen Delivery Method Room Air 07/17/24 16:15 Temperature 97.6 F 07/17/24 16:15 Pulse Rate 92 07/17/24 16:15 Respiratory Rate 18 07/17/24 16:15 Blood Pressure 138/96 H 07/17/24 16:15 Pulse Oximetry 98 07/17/24 16:15 Oxygen Delivery Method Room Air 07/17/24 16:15 Medical Decision Making MDM Narrative Medical decision making narrative: This patient is on several psychotropic medications including clonazepam and Adderall. He is also taking gabapentin. He has run out of clonazepam and appears to be taking it as prescribed. He was unable to arrange an appointment for a primary physician to manage medications until next week. He does have an appointment 8 days from now. I did agree to refill clonazepam 1 additional time under these circumstances. Discharge Plan Discharge Clinical Impression: Anxiety Patient Disposition: Home w/ Parent or Adult Condition: Stable Additional Instructions: Take medication as prescribed. Follow-up with primary care appointment as scheduled next week for ongoing medication management. Prescriptions: New clonazepam 1 mg tablet 1 mg PO BID Qty: 20 0RF No Action buprenorphine-naloxone 8-2 mg film 1 film sublingual 3XD gabapentin 800 mg tablet 800 mg PO QID Qty: 30 2RF clonazepam 1 mg tablet 1 mg PO TID dextroamphetamine-amphetamine [Adderall] 30 mg tablet 30 mg PO BID Rx Instructions: administer doses at least 4-6 hours apart gabapentin 800 mg tablet 800 mg PO QID Qty: 56 0RF Follow Up/Referrals: Provider,Not a Local [Primary Care Provider] - Stand Alone Forms: [facility] Info Instructions
--- OUTSIDE RECORDS SUMMARY | 2024-07-17 18:30 | XMS_ITS | Encounter Summary ---
Author Organization [employer] Address [address] [place] [address] Care Team Providers Care Allergy And Immunology Chief Name Role Phone Bhavana La MD Primary Care Provider [phone] [phone] Reason for Referral * Physical Therapy (Routine) - Closed Specialty Diagnoses / Procedures Referred By Contact Referred To Contact Physical Therapy / Rehabilitation Diagnoses Hip pain, chronic, right Right leg pain Juli Wells NP [address] [place] [address] Phone: tel: fax: [facility] [place] [address] [facility] [address] [address] Phone: tel: fax: Referral ID Status Reason Start Date Expiration Date V isits Requested Visits Authorized [id number] Closed Evaluation and Treatment 06/06/2020 06/06/2021 6 6 Encounter Details Date Type Department Care Team (Latest Contact Info) Description 06/06/2020 Transcribe Orders [facility] [place] [address] [facility] [address] [place] [address] Juli Wells, IGOR [address] [place], [place] [id number] Hip pain, chronic, right (Primary Dx); Right [...] Recorded Sex Assigned at Not on file Legal Sex Male 6:29 PM MDT Gender Identity Not on file Sexual Orientation Not on file documented as of this encounter Plan of Treatment Upcoming Encounters Date Type Department Care Team (Late st Contact Info) Description 12/12/2024 11:20 AM MDT Office Visit [facility] Neurology [facility] [address] [place] [address] Devin Rollins MD [address] [place] [address] Scheduled [...] documented as of this encounter Care Teams Allergy And Immunology Chief Relationship Specialty Start Date End Date Bhavana La MD [address] [place] [address] PCP - General Family Medicine 06/21/23 documented as of this encounter
--- OUTSIDE RECORDS SUMMARY | 2024-07-17 18:30 | XMS_ITS | Encounter Summary ---
Author Organization [employer] Address [address] [place] [address] Care Team Providers Care Physiological Chemist Name Role Phone Bhavana La MD Primary Care Provider [phone] [phone] Reason for Referral * EEG (Routine) - Closed Specialty Diagnoses / Procedures Referred By Contac t Referred To Contact Neurology Diagnoses Other seizures ([facility]) Procedures EEG Routine; Standard duration Bhavana La MD [address] [employer] [place] [address] Phone: tel: fax: [facility] EEG [address] [place] [address] Phone: tel: Referral ID Status Reason Start Date Expiration Date Visits Re quested Visits Authorized [id number] Closed 04/13/2023 04/12/2024 1 1 Encounter Details Date Type Department Care Team (Latest Contact Info) Description 04/13/2023 Transcribe Orders [facility] [address] [place] [address] Bhavana La MD [address] [place] [phone] Other seizures (CMS/HCC) (Primary Dx); Right hip [...] Description 12/12/2024 11:20 AM MDT Office Visit [facility] Neurology [facility] [address] [place] [address] Devin Rollins MD [address] [place] [phone] Scheduled Orders Name Type Priority Associated Diagnoses Orde r Schedule EEG Routine; Standard duration Neurology Routine Other seizures (CMS/HCC) Expected: 04/13/2023, Expires: 04/13/2024 documented as of this encounter Visit Diagnoses Diagnosis Other seizures (CMS/HCC)- Primary Right hip pain Pain in joint, pelvic region and thigh documented in this encounter Care Teams Physiological Chemist Relationship Specialty Start Date End Date Bhavana La MD [address] [place] [address] PCP - General Family Medicine 06/21/23 documented as of this encounter
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
--- OUTSIDE RECORDS SUMMARY | 2024-07-17 18:30 | XMS_ITS | Encounter Summary ---
Author Organization [employer] [facility] Address [address] [place] [address] Care Team Providers Care Instrument Installer Name Role Phone Bhavana La MD Primary Care Provider [phone] [phone] Encounter Details Date Type Department Care Team (Late st Contact Info) Description 04/02/[address] [facility] Patient Access [address] [facility] [place] [address] Pcp, Unknown Social History Tobacco Use [...] Description 12/12/2024 11:20 AM MDT Office Visit [facility] [address] [facility] [address] [place] [address] Devin Rollins MD [facility] [facility] [address] [place] [address] documented as of this encounter Visit Diagnoses Not on filedocumented in this encounter Additional Health Concerns Infection Onset Date Last Indicated Resolved Time COVID-19 Pending 05/30/2021 05/30/2021 05/31/2021 12:51 AM MDT COVID-19 Pending 08/08/2021 08/08/2021 08/08/2021 12:19 PM MST COVID-19 Pending 08/17/2022 08/17/2022 09/07/2022 7:42 PM MST documented as of this encounter Care Teams Instrument Installer Relationship Specialty Start Date End Date Bhavana La MD [address] [place] [address] PCP - General Family Medicine 06/21/23 documented as of this encounter
--- OUTSIDE RECORDS SUMMARY | 2024-07-17 18:30 | XMS_ITS | Encounter Summary ---
Author Organization [employer] Address [address] [place] [address] Care Team Providers Care Linoleum Tile Floor Layer Name Role Phone Bhavana La MD Primary Care Provider [phone] [phone] Encounter Details Date Type Department Care Team (Latest Contact Info) Description 04/19/2023 Transcribe Orders [facility] [address] [place] [id number] Bhavana La MD [address] [place] [address] Other seizures (CMS/HCC) (Primary Dx) Social History [...] 11:20 AM MDT Office Visit [facility] [place] [address] [place] [address] Devin Rollins MD [address] [place] [address] documented as of this encounter Visit Diagnoses Diagnosis Other seizures (CMS/HCC)- Primary documented in this encounter Care Teams Linoleum Tile Floor Layer Relationship Specialty Start Date End Date Bhavana La MD [address] [place] [address] PCP - General Family Medicine 06/21/23 documented as of this encounter
--- OUTSIDE RECORDS SUMMARY | 2024-07-17 18:30 | XMS_ITS | Encounter Summary ---
Author Organization [employer] Address [address] [place] [address] Care Team Providers Care Steak Tenderizer Machine Name Role Phone Bhavana La MD Primary Care Provider [phone] [phone] Encounter Details Date Type Department Care Team (Latest Contact Info) Description 01/19/2020 [facility] Patient Access [address] [place] [id number] Bhavana La MD [address] [place] [address] Pain in right hip (Primary Dx) Social [...] 11:20 AM MDT Office Visit [facility] [address] [facility] [address] [place] [address] Devin Rollins MD [address] [facility] [address] [place] [address] documented as of this encounter Visit Diagnoses Diagnosis Pain in right hip- Primary documented in this encounter Additional Health Concerns Infection Onset Date Last Indicated Resolved Time COVID-19 Pending 05/30/2021 05/30/2021 05/31/2021 12:51 AM MDT COVID-19 Pending 08/08/2021 08/08/2021 08/08/2021 12:19 PM MST COVID-19 Pending 08/17/2022 08/17/2022 09/07/2022 7:42 PM MST documented as of this encounter Care Teams Steak Tenderizer Machine Relationship Specialty Start Date End Date Bhavana La MD [address] [place] [address] PCP - General Family Medicine 06/21/23 documented as of this encounter
--- OUTSIDE RECORDS SUMMARY | 2024-07-17 18:30 | XMS_ITS | Encounter Summary ---
Author Organization [employer] Address [address] [place] [address] Care Team Providers Care Tire Duster Name Role Phone Bhavana La MD Primary Care Provider [phone] [phone] Encounter Details Date Type Department Care Team (Latest Contact Info) Description 03/10/2023 Transcribe Orders [facility] [place] [address] [place] [address] Bhavana La MD [address] [...] 11:20 AM MDT Office Visit [facility] [address] [place] [address] Devin Rollins MD [address] [place] [address] documented as of this encounter Visit Diagnoses Diagnosis Pain in right hip- Primary documented in this encounter Care Teams Tire Duster Relationship Specialty Start Date End Date Bhavana La MD [address] [place] [address] PCP - General Family Medicine 06/21/23 documented as of this encounter
--- OUTSIDE RECORDS SUMMARY | 2024-07-17 18:30 | XMS_ITS | Encounter Summary ---
Author Organization [facility] Address [address] [place] [address] Care Team Providers Care Vacuum Forming Machine Operator Name Role Phone Bhavana La MD Primary Care Provider [phone] Reason for Referral * Physical Therapy (Routine) - Closed Specialty Diagnoses / Procedures Referred By Contact Referred To Contact Physical Therapy / Rehabilitation Diagnoses Back pain Juli Wells NP Phone: tel: fax: [facility] [place] [address] [place] [address] Phone: tel: fax: Referral ID Status Reason Start Date Expiration Date V isits Requested Visits Authorized [id number] Closed Evaluation and Treatment 01/31/2019 03/28/2019 8 8 Encounter Details Date Type Department Care Team (Latest Contact Info) Description 02/27/2019 Transcribe Orders [facility] [place] [address] [place] [address] Juli Wells NP [address] [place] [address] Back pain (Primary Dx) Social History Tobacco [...] 11:20 AM MDT Office Visit [facility] [address] [place] [address] Devin Rollins MD [address] [employer] ([place]), [place] [address] Scheduled Referrals Name Type Priority [...] documented as of this encounter Care Teams Vacuum Forming Machine Operator Relationship Specialty Start Date End Date Bhavana La MD [address] [place] [address] PCP - General Family Medicine 06/21/23 documented as of this encounter
--- OUTSIDE RECORDS SUMMARY | 2024-07-17 18:30 | XMS_ITS | Clinical Summary ---
Author Organization [employer] Address [address] [place] [address] Care Team Providers Care Section Laborer Name Role Phone Bhavana La MD Primary Care Provider [phone] Allergies Active Allergy Reactions Criticality Noted Date [...] ??C (97.1 ??F) 09/25/2022 8:07 AM MS Frank Respiratory Rate 16 12/14/2023 11:05 AM MDT [...] 12/12/2024 11:20 AM MDT Office Visit [facility] [address] [facility] [address] [place] [address] Devin Rollins MD [address] [place] [address] Health Maintenance Due Date Last Done Comments Pneumococcal Vaccine: Peds a nd At-Risk Patients < 65 (1 of 2 - PCV) 1987 Td/Tdap 1999 COVID-19 Vaccine ( season) 05/07/202409/2020, 04/10/2021 Influenza Vaccine (#1) 2024 Hepatitis C Screening Completed 04/04/2018 Procedures Procedure Name Priority Date/Time Associated Diagnosis Comments HEPATITIS C RNA, QUANTITATIVE, PCR Routine 04/04/2018 9:09 AM MDT Opioid type dependence, continuous (CMS/HCC) 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 Blood Venous blood / Unknown Venipuncture / Unknown 04/04/2018 9:09 AM MDT 04/04/2018 9:09 AM MDT Narrative [facility] - 04/06/2018 7:08 PM MDT Performed at: ??01 - [facility] [address] ??[id number] [employer] Former: Frederick Alves MD, Phone: ??[phone] Donny Jeffrey DO LAB BLOOD ORDERABLES Final Resul t [facility] [address] [place] [address] from Last 3 Months or Most Recently Relevant to Health Maintenance Insurance [address] [place] [id number] [place] [address] [place] [facility] [place] [id number] [place] [address] [place] [facility] [place] [address] [place] ACC[place] Advance Directives * Full Code (Latest Code Status on File) Date Activated Date Inactivated Comments 06/07/2022 6:48 AM 06/07/2022 1:29 PM Care Teams Section Laborer Relationship Specialty Start Date End Date Bhavana La MD [address] [place] [address] PCP - General Family Medicine 06/21/23
== END 2024-07-17 18:45 | disposition home or self-care (01) ==
LOC: ED 18:27
PROVIDERS: Emergency Provider Emergency Medicine Emergency Medical Services; PCP Internal Medicine
DX: F41.9 Anxiety disorder, unspecified (principal)
CPT/HCPCS: 99283; 99284